=== PATIENT | female | born 1980 | race Caucasian/White ===

== ENCOUNTER 2021-04-28 11:25 | Emergency (ER) | payer MEDICAID ==
[2021-04-28] MEDS ORDERED: cefTRIAXone 1 GM, Lidocaine 1% 2.1 ML IM ONE ×2 (12:20)
[2021-04-28] MEDS ORDERED: HYDROmorphone 0.5 MG/0.5 ML Syringe IM ONE (12:20)
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
== END 2021-04-28 12:54 | disposition home or self-care (01) ==
LOC: JD.ED 11:25
DX: O99.612 Diseases of the digestive system complicating pregnancy, second trimester (principal); K02.9 Dental caries, unspecified; O99.212 Obesity complicating pregnancy, second trimester; E66.9 Obesity, unspecified; Z72.0 Tobacco use; Z3A.24 24 weeks gestation of pregnancy
CPT/HCPCS: 96372; 99282; J0696; J1170; 99283

== ENCOUNTER 2021-07-30 05:06 | Inpatient (IN) | payer MEDICAID ==
[~2021-07-30 05:06] MED LIST: Citric Acid/Sodium Citrate Solution 30 ML Cup PO ONE; Metoclopramide 10 MG/2 ML SDV IVPUSH ONE; Oxytocin/Lactated Ringers 10 UNIT/1,000 ML BAG IV SCH; Sodium Chloride 0.9% 10 ML Syringe FLUSH PRN; ceFAZolin 1 GM in Sodium Chloride 0.9% 100 ML IV ONE; ceFAZolin 2 GM in Premix Bag 1 BAG IV ONE
[2021-07-30] MEDS: Lactated Ringers 1,000 ML IV SCH ×2 (05:35→06:10)
[2021-07-30] MEDS ORDERED: Ketorolac 30 MG/ML SDV ONE (07:08)
[2021-07-30] MEDS ORDERED: Ondansetron 4 MG/2 ML SDV ONE ×2 (07:08→08:04)
[2021-07-30] MEDS ORDERED: Lactated Ringers 2,000 ML ONE (07:08)
[2021-07-30] MEDS ORDERED: ceFAZolin 1 GM Vial ONE (07:08)
[2021-07-30] MEDS ORDERED: Oxytocin 10 Units/1 ML SDV ONE (07:08)
[2021-07-30] MEDS ORDERED: Morphine PF 10 MG/10 ML SDV ONE (07:09)
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
[2021-07-30] MEDS ORDERED: ePHEDrine 50 MG/ML SDV ONE (07:55)
[2021-07-30] MEDS ORDERED: Bupivacaine 0.5% 30 ML SDV ONE (07:58)
[2021-07-30] MEDS ORDERED: fentaNYL 100 MCG/2 ML SDV IVPUSH PRN (08:11)
[2021-07-30] MEDS ORDERED: Ondansetron 4 MG/2 ML SDV IVPUSH PRN ×2 (08:11→13:19)
[2021-07-30] MEDS ORDERED: diphenhydrAMINE 50 MG/ML SDV IVPUSH PRN ×3 (08:11→09:12)
[2021-07-30] MEDS ORDERED: Meperidine 50 MG/ML Vial IVPUSH PRN (08:11)
[2021-07-30] MEDS ORDERED: Lactated Ringers 1,000 ML ONE (08:33)
--- NOTE | 2021-07-30 08:53 | PCM.POSTAN ---
POST ANESTHESIA ASSESSMENT - MENTAL STATUS Mental Status: Alert, Oriented - VITAL SIGNS Vital Signs: Last Vital Signs Temp 97.7 F 07/30/21 05:28 Pulse 89 07/30/21 05:28 Resp 16 07/30/21 05:28 BP 134/80 07/30/21 05:28 Pulse Ox 97 07/30/21 05:28 0840 102/61 94% 85 13 97.5 - RESPIRATORY Respiratory Status: Respiratory Rate WNL, Airway Patent, O2 Saturation Stable - CARDIOVASCULAR CV Status: Pulse Rate WNL, Blood Pressure Stable - GASTROINTESTINAL GI Status: No Symptoms - PAIN Pain Score: 0 - POST OP HYDRATION Hydration Status: Adequate & Stable
--- NOTE | 2021-07-30 09:03 | PCM.OPNOTE ---
- General Post-Op/Procedure Note Date of Surgery/Procedure: 07/30/21 Operative Procedure(s): repeat section Findings: omental adhesions, viable male, weight 6#12oz, 8/9 apgars at 0806. Normal uterus, tubes and ovaries. Pre Op Diagnosis: prior , desires repeat, AMA, poorly controlled/unmanaged gestational diabetes Post-Op Diagnosis: Same Anesthesia Technique: Spinal Primary Surgeon: Terri Fitzpatrick (33 min) Advanced Practice Psychiatric Nurse: Agnieszka Najera Fluid Replacement, Intraop: 3,500 Output, Urine Amount: 50 EBL in mLs: 800 Drain/Tube Comments:: romeo Complications: None Condition: Good Free Text/Narrative:: The patient was taken to the operating room where spinal anesthesia was initiated at surgical levels without difficulty. The patient was prepped and draped in the usual sterile fashion in the dorsal supine position with a leftward tilt. A Pfannenstiel skin incision was made with the scalpel and carried through to the underlying layer of fascia. The fascia was incised in the midline and extended laterally using Hernandez scissors. Tracie clamps were used to elevate the superior aspect of the fascial incision, which was elevated, and the underlying rectus muscles were dissected off bluntly and using Hernandez scissors. Attention was then turned to the inferior aspect of the fascial incision, which in similar fashion was grasped with Tracie clamps, elevated, and the underlying rectus muscles were dissected off bluntly and using the hernandez. The rectus muscles were dissected in the midline. The peritoneum was entered bluntly; this incision was extended superiorly and inferiorly with good visualization of the bladder. The bladder blade was inserted. The vesicouterine peritoneum was identified and entered sharply using Metzenbaum scissors. This incision was extended laterally and the bladder flap was created digitally. The bladder blade was reinserted. The lower uterine segment was incised in a transverse fashion using the scalpel and with digital traction. Clear fluid was noted. The infant was subsequently delivered by flexing the head to the incision. Body and shoulders followed without difficulty. The cord was clamped and cut. The infant was subsequently handed to the awaiting manager of sales whose presence had been requested.. The placenta was delivered spontaneously intact with a three-vessel cord noted. The uterus was exteriorized and cleared of all clots and debris. The uterine incision was repaired in 2 layers using 0 monocryl. Hemostasis was visualized. Hemostasis was visualized bilaterally. The uterus was returned to the abdomen. The uterine incision was reexamined and it was noted to be hemostatic. The pelvis was copiously irrigated. The fascia was closed with 1 PDS suture, and the skin was closed with 3-0 monocryl. Sponge, lap, and instrument counts were correct x2. The patient was stable at the completion of the procedure and was subsequently transferred to the recovery room in stable condition.
[2021-07-30] MEDS ORDERED: Acetaminophen/oxyCODONE 325-5 MG Tab PO PRN (09:12)
[2021-07-30] MEDS ORDERED: Naloxone 0.4 MG/ML SDV IVPUSH PRN ×2 (09:12)
[2021-07-30] MEDS ORDERED: ePHEDrine 50 MG/ML SDV IVPUSH PRN ×2 (09:12)
[2021-07-30] MEDS ORDERED: Dextrose 5%-Lactated Ringers 1,000 ML IV SCH ×2 (09:15)
[2021-07-30] MEDS: Ketorolac 30 MG/ML SDV IVPUSH SCH ×2 (13:26→20:36)
[2021-07-30] MEDS ORDERED: Promethazine 12.5 MG in Sodium Chloride 0.9% 50 ML IV PRN (18:25)
[2021-07-31] MEDS: Acetaminophen/oxyCODONE 325-5 MG Tab PO PRN ×5 (00:15→19:39)
[2021-07-31] MEDS: Ketorolac 30 MG/ML SDV IVPUSH SCH (02:04)
[2021-07-31] MEDS ORDERED: Simethicone 80 MG Tab.Chew PO PRN (02:12)
[2021-07-31] MEDS: Ibuprofen 600 MG Tab PO PRN ×3 (08:08→22:34)
[2021-07-31] MEDS: Prenatal Multivitamin with Calcium/Folic Acid/Iron Tab PO SCH (08:09)
--- NOTE | 2021-07-31 08:17 | PCM48HPAN ---
Post Anesthesia Note - EVALUATION WITHIN 48HRS OF ANESTHETIC Vital Signs in Normal Range: Yes Patient Participated in Evaluation: Yes Respiratory Function Stable: Yes Airway Patent: Yes Cardiovascular Function Stable: Yes Hydration Status Stable: Yes Pain Control Satisfactory: Yes Nausea and Vomiting Control Satisfactory: Yes (nausea yesterday until 1999- broth stayed down. fine today) Mental Status Recovered: Yes Vital Signs: Last Vital Signs Temp 97.5 F 07/31/21 05:05 Pulse 79 07/31/21 05:05 Resp 14 07/31/21 07:00 BP 112/64 07/31/21 05:05 Pulse Ox 99 07/31/21 07:00
[2021-07-31] MEDS ORDERED: LORAZEPAM 1 MG PO PRN (21:44)
[2021-08-01] MEDS: Acetaminophen/oxyCODONE 325-5 MG Tab PO PRN ×4 (00:09→23:42)
[2021-08-01] MEDS: Docusate Sodium 100 MG Cap PO PRN ×3 (02:30→23:42)
[2021-08-01] MEDS: Ibuprofen 600 MG Tab PO PRN ×2 (05:47→14:30)
[2021-08-01] MEDS ORDERED: HYDROmorphone 0.5 MG/0.5 ML Syringe IVPUSH PRN (07:37)
[2021-08-01] MEDS ORDERED: diphenhydrAMINE 50 MG/ML SDV IVPUSH PRN (07:38)
[2021-08-01] MEDS: HYDROmorphone 1 MG/ML Syringe IVPUSH PRN ×2 (08:25→14:40)
--- NOTE | 2021-08-01 08:37 | PCM.PNPP ---
- General Info Date of Service: 08/01/21 Functional Status: Reports: Pain Controlled - Review of Systems General: Reports: No Symptoms HEENT: Reports: No Symptoms Pulmonary: Reports: No Symptoms Cardiovascular: Reports: No Symptoms Gastrointestinal: Reports: No Symptoms Genitourinary: Reports: No Symptoms Musculoskeletal: Reports: No Symptoms Skin: Reports: No Symptoms Neurological: Reports: No Symptoms Psychiatric: Reports: No Symptoms - General Info Date of Service: 08/01/21 - Patient Data Vital Signs - Most Recent: Last Vital Signs Temp 37.2 C 08/01/21 02:27 Pulse 72 08/01/21 02:27 Resp 12 08/01/21 02:27 BP 103/61 08/01/21 02:27 Pulse Ox 97 08/01/21 02:27 Weight - Most Recent: 105.687 kg Med Orders - Current: Current Medications Diphenhydramine HCl (Diphenhydramine 50 Mg/Ml Sdv) 25 mg IVPUSH Q6H PRN PRN Reason: Itching or Nausea Diphenhydramine HCl (Diphenhydramine 50 Mg/Ml Sdv) 25 mg IVPUSH Q6H PRN PRN Reason: Anxiety Last Admin: 08/01/21 08:27 Dose: 25 mg Documented by: Docusate Sodium (Docusate Sodium 100 Mg Cap) 100 mg PO Q12H PRN PRN Reason: Constipation Last Admin: 08/01/21 02:30 Dose: 100 mg Documented by: Ephedrine Sulfate (Ephedrine 50 Mg/Ml Sdv) 5 mg IVPUSH SEECOMMENT PRN PRN Reason: Other Hydromorphone HCl (Hydromorphone 0.5 Mg/0.5 Ml Syringe) 0.5 mg IVPUSH Q2H PRN PRN Reason: Pain Hydromorphone HCl (Hydromorphone 1 Mg/Ml Syringe) 1 mg IVPUSH Q1H PRN PRN Reason: Pain (severe 7-10) Last Admin: 08/01/21 08:25 Dose: 1 mg Documented by: Promethazine HCl 12.5 mg/ (Sodium Chloride) 50.5 mls @ 100 mls/hr IV Q6H PRN PRN Reason: Nausea/Vomiting Ibuprofen (Ibuprofen 600 Mg Tab) 600 mg PO Q6H PRN PRN Reason: mild pain or fever Last Admin: 08/01/21 05:47 Dose: 600 mg Documented by: Lorazepam (Lorazepam 1 Mg Tab Own Med) 1 mg PO BEDTIME PRN PRN Reason: Anxiety Naloxone HCl (Naloxone 0.4 Mg/Ml Sdv) 0.1 mg IVPUSH SEECOMMENT PRN PRN Reason: Respiratory Depression Ondansetron HCl (Ondansetron 4 Mg/2 Ml Sdv) 4 mg IVPUSH Q8H PRN PRN Reason: Nausea/Vomiting Last Admin: 07/30/21 13:26 Dose: 4 mg Documented by: Oxycodone/Acetaminophen (Acetaminophen/Oxycodone 325-5 Mg Tab) 1 tab PO Q4H PRN PRN Reason: Pain (moderate 4-6) Oxycodone/Acetaminophen (Acetaminophen/Oxycodone 325-5 Mg Tab) 2 tab PO Q4H PRN PRN Reason: Pain (severe 7-10) Last Admin: 08/01/21 05:23 Dose: 2 tab Documented by: Prenat Multivit/[place]/Iron/Folic Ac ( Multivitamin With Calcium/Folic Acid/Iron Tab) 1 each PO DAILY ANNEL Last Admin: 07/31/21 08:09 Dose: 1 each Documented by: Simethicone (Simethicone 80 Mg Tab.Chew) 80 mg PO Q6H PRN PRN Reason: Gas Last Admin: 07/31/21 02:26 Dose: 80 mg Documented by: Discontinued Medications Bupivacaine HCl (Bupivacaine 0.5% 30 Ml Sdv) Confirm Administered Dose 30 ml .ROUTE .STK-MED ONE Stop: 07/30/21 07:59 Last Admin: 07/30/21 08:02 Dose: 20 ml Documented by: Cefazolin Sodium (Cefazolin 1 Gm Vial) Confirm Administered Dose 2 gm .ROUTE .STK-MED ONE Stop: 07/30/21 07:09 Citric Acid/Sodium Citrate (Citric Acid/Sodium Citrate Solution 30 Ml Cup) 30 ml PO ONETIME ONE Stop: 07/30/21 01:25 Last Admin: 07/30/21 07:07 Dose: 30 ml Documented by: Diphenhydramine HCl (Diphenhydramine 50 Mg/Ml Sdv) 25 mg IVPUSH Q6H PRN PRN Reason: Pruritis Last Admin: 07/30/21 09:20 Dose: 25 mg Documented by: Diphenhydramine HCl (Diphenhydramine 50 Mg/Ml Sdv) 25 mg IVPUSH Q6H PRN PRN Reason: Itching or Nausea Ephedrine Sulfate (Ephedrine 50 Mg/Ml Sdv) Confirm Administered Dose 50 mg .ROUTE .STK-MED ONE Stop: 07/30/21 07:56 Fentanyl (Fentanyl 100 Mcg/2 Ml Sdv) 50 mcg IVPUSH Q5M PRN PRN Reason: Pain Cefazolin Sodium 1 gm/ Sodium (Chloride) 100 mls @ 100 mls/hr IV ONETIME ONE Stop: 07/30/21 02:23 Cefazolin Sodium/Dextrose 2 gm (/ Premix) 50 mls @ 100 mls/hr IV ONETIME ONE Stop: 07/30/21 01:53 Oxytocin/Lactated Ringer's (Pitocin In Lr 10 Units/1,000 Ml) 10 unit in 1,000 mls @ 100 mls/hr IV ASDIRECTED [facility] Lactated Ringer's (Ringers, Lactated) 1,000 mls @ 125 mls/hr IV ASDIRECTED [facility] Last Admin: 07/30/21 06:10 Dose: 100 mls/hr Documented by: Lactated Ringer's (Ringers, Lactated) Confirm Administered Dose 2,000 mls @ as directed .ROUTE .ST-MED ONE Stop: 07/30/21 07:09 Lactated Ringer's (Ringers, Lactated) Confirm Administered Dose 1,000 mls @ as directed .ROUTE .STK-MED ONE Stop: 07/30/21 08:34 Dextrose/Lactated Ringer's (Dextrose 5%-Lactated Ringers) 1,000 mls @ 125 mls/hr IV ASDIRECTED [facility] Stop: 07/30/21 17:14 Dextrose/Lactated Ringer's (Dextrose 5%-Lactated Ringers) 1,000 mls @ 125 mls/hr IV ASDIRECTED [facility] Stop: 07/30/21 17:14 Last Admin: 07/30/21 10:04 Dose: 125 mls/hr Documented by: Ketorolac Tromethamine (Ketorolac 30 Mg/Ml Sdv) Confirm Administered Dose 30 mg .ROUTE .STK-MED ONE Stop: 07/30/21 07:09 Ketorolac Tromethamine (Ketorolac 30 Mg/Ml Sdv) 30 mg IVPUSH Q6H ANNEL Stop: 07/31/21 01:31 Last Admin: 07/31/21 02:04 Dose: 30 mg Documented by: Meperidine HCl (Meperidine 50 Mg/Ml Vial) 25 mg IVPUSH ONETIME PRN PRN Reason: Shivering Metoclopramide HCl (Metoclopramide 10 Mg/2 Ml Sdv) 10 mg IVPUSH ONETIME ONE Stop: 07/30/21 01:25 Last Admin: 07/30/21 07:08 Dose: 10 mg Documented by: Miscellaneous Medication (Phenylephrine Hcl In 0.9% Nacl 1 Mg/10 Ml Syringe) Confirm Administered Dose 1 mg .ROUTE .STK-MED ONE Stop: 07/30/21 07:53 Morphine Sulfate (Morphine Pf 10 Mg/10 Ml Sdv) Confirm Administered Dose 10 mg .ROUTE .STK-MED ONE Stop: 07/30/21 07:10 Ondansetron HCl (Ondansetron 4 Mg/2 Ml Sdv) Confirm Administered Dose 4 mg .ROUTE .STK-MED ONE Stop: 07/30/21 07:09 Ondansetron HCl (Ondansetron 4 Mg/2 Ml Sdv) Confirm Administered Dose 4 mg .ROUTE .STK-MED ONE Stop: 07/30/21 08:05 Ondansetron HCl (Ondansetron 4 Mg/2 Ml Sdv) 4 mg IVPUSH ONETIME PRN PRN Reason: Nausea/Vomiting Oxytocin (Oxytocin 10 Units/1 Ml Sdv) Confirm Administered Dose 10 unit .ROUTE .STK-MED ONE Stop: 07/30/21 07:09 Sodium Chloride (Sodium Chloride 0.9% 10 Ml Syringe) 10 ml FLUSH ASDIRECTED PRN PRN Reason: Keep Vein Open - Interaction Support Person: Significant Other - Recovery Exam Fundal Tone: Firm Fundal Level: 1 Fingerbreadths Below Umbilicus Fundal Placement: Midline Lochia Amount: Scant, Small Lochia Color: Rubra/Red Perineum Description: Intact, Minimal Bruising/Swelling Episiotomy/Laceration: None Bladder Status: Voiding Urinary Elimination: Voided - Exam General: Alert, Oriented HEENT: Pupils Equal Neck: Supple Lungs: Clear to Auscultation, Normal Respiratory Effort Cardiovascular: Regular Rate, Regular Rhythm GI/Abdominal Exam: Normal Bowel Sounds, Soft, Non-Tender, No Organomegaly, No Distention, No Abnormal Bruit, No Mass, Pelvis Stable Extremities: Normal Inspection, Normal Range of Motion, Non-Tender, No Pedal Edema, Normal Capillary Refill Skin: Warm, Dry, Intact Wound/Incisions: Other (open - packed daily) Neurological: No New Focal Deficit Psy/Mental Status: Alert, Normal Affect, Normal Mood - Problem List Review Problem List Initiated/Reviewed/Updated: Yes - My Orders Last 24 Hours: My Active Orders 07/31/21 09:00 Vit with Ca/FA/Iron [ Plus Iron] 1 each PO DAILY 07/31/21 12:58 PT Evaluation and Treatment [CONS] Routine 07/31/21 21:44 LORazepam [Ativan] 1 mg PO BEDTIME PRN 08/01/21 02:22 Docusate Sodium [Colace] 100 mg PO Q12H PRN 08/01/21 07:37 HYDROmorphone [Dilaudid] 0.5 mg IVPUSH Q2H PRN 08/01/21 07:38 HYDROmorphone [Dilaudid] 1 mg IVPUSH Q1H PRN diphenhydrAMINE [Benadryl] 25 mg IVPUSH Q6H PRN - Assessment Assessment:: POD2. Doing well. Tolerating wound packing. Wound vacuum tomorrow if possible
[2021-08-01] MEDS: Prenatal Multivitamin with Calcium/Folic Acid/Iron Tab PO SCH (10:50)
[2021-08-02] MEDS: Ibuprofen 600 MG Tab PO PRN ×3 (00:55→14:15)
[2021-08-02] MEDS: Acetaminophen/oxyCODONE 325-5 MG Tab PO PRN ×4 (04:06→16:42)
[2021-08-02] MEDS: Docusate Sodium 100 MG Cap PO PRN (08:37)
[2021-08-02] MEDS: Prenatal Multivitamin with Calcium/Folic Acid/Iron Tab PO SCH (08:37)
--- NOTE | 2021-08-02 08:56 | PCM.DCSUM1 ---
Discharge Summary - Hospital Course Diagnosis: Stroke: No - Discharge Data Discharge Date: 08/02/21 Discharge Disposition: Home, Self-Care 01 Condition: Good - Referral to Home Health Primary Care Physician: Terri Fitzpatrick MD - Patient Summary/Data Operative Procedure(s) Performed: repeat section Consults: Consultations 07/31/21 12:58 PT Evaluation and Treatment [CONS] Routine Hospital Course: Admitted for repeat . Wound separation POD1. Packed daily with moist kerlix. Wound vacuum consult. Discharged in good condition. - Patient Instructions Diet: Usual Diet as Tolerated Activity: No Strenuous Activities Driving: Do Not Drive (while requiring pain meds) Showering/Bathing: No Showering Wound/Incision Care: Do NOT Change Dressing (PT for this) Notify Provider of: Fever, Increased Pain, Swelling and Redness, Drainage, Nausea and/or Vomiting - Discharge Plan *PRESCRIPTION DRUG MONITORING PROGRAM REVIEWED*: No *COPY OF PRESCRIPTION DRUG MONITORING REPORT IN PATIENT NINI: No Home Medications: Home Meds Non-Formulary Medication [NF Drug] 1 inh INH DAILY 04/28/21 [History] Pnv No.95/Ferrous Fum/Folic AC [ Cap[place]] 1 each PO DAILY 04/28/21 [History] LORazepam [Ativan] 1 mg PO DAILY 07/29/21 [History] Patient Handouts: Marijuana Use During and , Steps to Quit Smoking Referrals: Terri Fitzpatrick MD [Primary Care Provider] - (2 weeks) Physical Therapy,Template [Physical Therapist] - (1 weeks) - Discharge Summary/Plan Comment DC Time >30 min.: Yes Total # of Minutes for Discharge Time: 45 - General Info Date of Service: 08/02/21 Functional Status: Reports: Pain Controlled - Review of Systems General: Reports: No Symptoms HEENT: Reports: No Symptoms Pulmonary: Reports: No Symptoms Cardiovascular: Reports: No Symptoms Gastrointestinal: Reports: No Symptoms Genitourinary: Reports: No Symptoms Musculoskeletal: Reports: No Symptoms Skin: Reports: No Symptoms Neurological: Reports: No Symptoms Psychiatric: Reports: No Symptoms - Patient Data Vitals - Most Recent: Last Vital Signs Temp 36.6 C 08/02/21 08:19 Pulse 88 08/02/21 08:19 Resp 15 08/02/21 08:19 BP 114/67 08/02/21 08:19 Pulse Ox 97 10/29/21 08:19 Weight - Most Recent: 105.687 kg I&O - Last 24 hours: Intake & Output 08/01/21 08/02/21 08/02/21 22:59 06:59 14:59 Intake Total 320 Balance 320 Med Orders - Current: Current Medications Diphenhydramine HCl (Diphenhydramine 50 Mg/Ml Sdv) 25 mg IVPUSH Q6H PRN PRN Reason: Itching or Nausea Diphenhydramine HCl (Diphenhydramine 50 Mg/Ml Sdv) 25 mg IVPUSH Q6H PRN PRN Reason: Anxiety Last Admin: 08/01/21 08:27 Dose: 25 mg Documented by: Docusate Sodium (Docusate Sodium 100 Mg Cap) 100 mg PO Q12H PRN PRN Reason: Constipation Last Admin: 08/02/21 08:37 Dose: 100 mg Documented by: Ephedrine Sulfate (Ephedrine 50 Mg/Ml Sdv) 5 mg IVPUSH SEECOMMENT PRN PRN Reason: Other Hydromorphone HCl (Hydromorphone 0.5 Mg/0.5 Ml Syringe) 0.5 mg IVPUSH Q2H PRN PRN Reason: Pain Last Admin: 08/01/21 11:23 Dose: 0.5 mg Documented by: Hydromorphone HCl (Hydromorphone 1 Mg/Ml Syringe) 1 mg IVPUSH Q1H PRN PRN Reason: Pain (severe 7-10) Last Admin: 08/01/21 14:40 Dose: 1 mg Documented by: Promethazine HCl 12.5 mg/ (Sodium Chloride) 50.5 mls @ 100 mls/hr IV Q6H PRN PRN Reason: Nausea/Vomiting Ibuprofen (Ibuprofen 600 Mg Tab) 600 mg PO Q6H PRN PRN Reason: mild pain or fever Last Admin: 08/02/21 07:11 Dose: 600 mg Documented by: Lorazepam (Lorazepam 1 Mg Tab Own Med) 1 mg PO BEDTIME PRN PRN Reason: Anxiety Naloxone HCl (Naloxone 0.4 Mg/Ml Sdv) 0.1 mg IVPUSH SEECOMMENT PRN PRN Reason: Respiratory Depression Ondansetron HCl (Ondansetron 4 Mg/2 Ml Sdv) 4 mg IVPUSH Q8H PRN PRN Reason: Nausea/Vomiting Last Admin: 07/30/21 13:26 Dose: 4 mg Documented by: Oxycodone/Acetaminophen (Acetaminophen/Oxycodone 325-5 Mg Tab) 1 tab PO Q4H PRN PRN Reason: Pain (moderate 4-6) Last Admin: 08/01/21 10:50 Dose: 1 tab Documented by: Oxycodone/Acetaminophen (Acetaminophen/Oxycodone 325-5 Mg Tab) 2 tab PO Q4H PRN PRN Reason: Pain (severe 7-10) Last Admin: 08/02/21 08:23 Dose: 2 tab Documented by: Prenat Multivit/[place]/Iron/Folic Ac ( Multivitamin With Calcium/Folic Acid/Iron Tab) 1 each PO DAILY ANNEL Last Admin: 08/02/21 08:37 Dose: 1 each Documented by: Simethicone (Simethicone 80 Mg Tab.Chew) 80 mg PO Q6H PRN PRN Reason: Gas Last Admin: 07/31/21 02:26 Dose: 80 mg Documented by: Discontinued Medications Bupivacaine HCl (Bupivacaine 0.5% 30 Ml Sdv) Confirm Administered Dose 30 ml .ROUTE .STK-MED ONE Stop: 07/30/21 07:59 Last Admin: 07/30/21 08:02 Dose: 20 ml Documented by: Cefazolin Sodium (Cefazolin 1 Gm Vial) Confirm Administered Dose 2 gm .ROUTE .STK-MED ONE Stop: 07/30/21 07:09 Citric Acid/Sodium Citrate (Citric Acid/Sodium Citrate Solution 30 Ml Cup) 30 ml PO ONETIME ONE Stop: 07/30/21 01:25 Last Admin: 07/30/21 07:07 Dose: 30 ml Documented by: Diphenhydramine HCl (Diphenhydramine 50 Mg/Ml Sdv) 25 mg IVPUSH Q6H PRN PRN Reason: Pruritis Last Admin: 07/30/21 09:20 Dose: 25 mg Documented by: Diphenhydramine HCl (Diphenhydramine 50 Mg/Ml Sdv) 25 mg IVPUSH Q6H PRN PRN Reason: Itching or Nausea Ephedrine Sulfate (Ephedrine 50 Mg/Ml Sdv) Confirm Administered Dose 50 mg .ROUTE .STK-MED ONE Stop: 07/30/21 07:56 Fentanyl (Fentanyl 100 Mcg/2 Ml Sdv) 50 mcg IVPUSH Q5M PRN PRN Reason: Pain Cefazolin Sodium 1 gm/ Sodium (Chloride) 100 mls @ 100 mls/hr IV ONETIME ONE Stop: 07/30/21 02:23 Cefazolin Sodium/Dextrose 2 gm (/ Premix) 50 mls @ 100 mls/hr IV ONETIME ONE Stop: 07/30/21 01:53 Oxytocin/Lactated Ringer's (Pitocin In Lr 10 Units/1,000 Ml) 10 unit in 1,000 mls @ 100 mls/hr IV ASDIRECTED [facility] Lactated Ringer's (Ringers, Lactated) 1,000 mls @ 125 mls/hr IV ASDIRECTED [facility] Last Admin: 07/30/21 06:10 Dose: 100 mls/hr Documented by: Lactated Ringer's (Ringers, Lactated) Confirm Administered Dose 2,000 mls @ as directed .ROUTE .K-MED ONE Stop: 07/30/21 07:09 Lactated Ringer's (Ringers, Lactated) Confirm Administered Dose 1,000 mls @ as directed .ROUTE .STK-MED ONE Stop: 07/30/21 08:34 Dextrose/Lactated Ringer's (Dextrose 5%-Lactated Ringers) 1,000 mls @ 125 mls/hr IV ASDIRECTED [facility] Stop: 07/30/21 17:14 Dextrose/Lactated Ringer's (Dextrose 5%-Lactated Ringers) 1,000 mls @ 125 mls/hr IV ASDIRECTED [facility] Stop: 07/30/21 17:14 Last Admin: 07/30/21 10:04 Dose: 125 mls/hr Documented by: Ketorolac Tromethamine (Ketorolac 30 Mg/Ml Sdv) Confirm Administered Dose 30 mg .ROUTE .STK-MED ONE Stop: 07/30/21 07:09 Ketorolac Tromethamine (Ketorolac 30 Mg/Ml Sdv) 30 mg IVPUSH Q6H [facility] Stop: 07/31/21 01:31 Last Admin: 07/31/21 02:04 Dose: 30 mg Documented by: Meperidine HCl (Meperidine 50 Mg/Ml Vial) 25 mg IVPUSH ONETIME PRN PRN Reason: Shivering Metoclopramide HCl (Metoclopramide 10 Mg/2 Ml Sdv) 10 mg IVPUSH ONETIME ONE Stop: 07/30/21 01:25 Last Admin: 07/30/21 07:08 Dose: 10 mg Documented by: Miscellaneous Medication (Phenylephrine Hcl In 0.9% Nacl 1 Mg/10 Ml Syringe) Confirm Administered Dose 1 mg .ROUTE .STK-MED ONE Stop: 07/30/21 07:53 Morphine Sulfate (Morphine Pf 10 Mg/10 Ml Sdv) Confirm Administered Dose 10 mg .ROUTE .STK-MED ONE Stop: 07/30/21 07:10 Ondansetron HCl (Ondansetron 4 Mg/2 Ml Sdv) Confirm Administered Dose 4 mg .ROUTE .STK-MED ONE Stop: 07/30/21 07:09 Ondansetron HCl (Ondansetron 4 Mg/2 Ml Sdv) Confirm Administered Dose 4 mg .ROUTE .STK-MED ONE Stop: 07/30/21 08:05 Ondansetron HCl (Ondansetron 4 Mg/2 Ml Sdv) 4 mg IVPUSH ONETIME PRN PRN Reason: Nausea/Vomiting Oxytocin (Oxytocin 10 Units/1 Ml Sdv) Confirm Administered Dose 10 unit .ROUTE .STK-MED ONE Stop: 07/30/21 07:09 Sodium Chloride (Sodium Chloride 0.9% 10 Ml Syringe) 10 ml FLUSH ASDIRECTED PRN PRN Reason: Keep Vein Open - Exam General: Reports: Alert, Oriented HEENT: Reports: Pupils Equal, Pupils Reactive, EOMI, Mucous Membr. Moist/[place] Neck: Reports: Supple Lungs: Reports: Clear to Auscultation, Normal Respiratory Effort Cardiovascular: Reports: Regular Rate, Regular Rhythm GI/Abdominal Exam: Normal Bowel Sounds, Soft, Non-Tender, No Organomegaly, No Distention, Other (Wound open - 6 cm deep approximately and open entire length.) Rectal (Female) Exam: Normal Exam, Normal Rectal Tone Back Exam: Reports: Normal Inspection, Full Range of Motion Extremities: Normal Inspection, Normal Range of Motion, Non-Tender, No Pedal Edema, Normal Capillary Refill Skin: Reports: Warm, Dry, Intact Wound/Incisions: Reports: Healing Well Neurological: Reports: No New Focal Deficit Psy/Mental Status: Reports: Alert, Normal Affect, Normal Mood
== END 2021-08-02 19:05 | disposition home or self-care (01) | DRG 788 ==
LOC: JD.OB 05:06
PROVIDERS: ADMIT Obstetrics & Gynecology; ATTEND Obstetrics & Gynecology
PROC: 10D00Z1 Extraction of Products of Conception, Low, Open Approach (ICD-10-PCS; principal; 2021-07-30)
DX: O34.211 Maternal care for low transverse scar from previous cesarean delivery (principal); Z37.0 Single live birth; O99.62 Diseases of the digestive system complicating childbirth; K21.9 Gastro-esophageal reflux disease without esophagitis; O99.344 Other mental disorders complicating childbirth; F41.9 Anxiety disorder, unspecified; F31.9 Bipolar disorder, unspecified; Z20.822 Contact with and (suspected) exposure to COVID-19; Z87.891 Personal history of nicotine dependence; O24.429 Gestational diabetes mellitus in childbirth, unspecified control; Z3A.38 38 weeks gestation of pregnancy
CPT/HCPCS: 01961; 36415; 59025; 80306; 81001; 82947; 85025; 86592; 86850; 86900; 86901; 97161-GP; 97607; A9270-GY; J0690; J1170; J1200; J1885; J2270; J2370; J2405; J2590; J2765; J3490; J7120; J7121; U0002

== ENCOUNTER 2021-10-03 08:45 | Emergency (ER) | payer MEDICAID ==
[2021-10-03] MEDS ORDERED: HYDROmorphone 1 MG/ML Syringe IVPUSH ONE (10:54)
[2021-10-03] MEDS ORDERED: Metoclopramide 10 MG/2 ML SDV IVPUSH ONE (10:55)
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
[2021-10-03] MEDS ORDERED: Dextrose 5%-0.9% NaCl 1,000 ML IV SCH (11:00)
--- NOTE | 2021-10-03 11:32 | CT ---
CT abdomen and pelvis Technique: Multiple axial sections were obtained from slightly below the top of the liver inferiorly through the pubic symphysis. Intravenous and oral contrast were not utilized. Reconstructed coronal and sagittal images were obtained. Comparison: No prior abdominal imaging is available. Findings: Soft tissue density is seen around the lower anterior abdominal wall. This presumably represents previous surgery. No additional abdominal wall abnormality is appreciated. Visualized lung bases are clear. Noncontrast appearance of spleen size is normal. Adrenal glands show no nodule. Pancreas shows no discrete abnormality. Kidneys show no abnormal calcifications or hydronephrosis. Abdominal aorta shows no aneurysm. No retroperitoneal adenopathy or mesenteric abnormalities are seen. No pelvic mass or adenopathy is seen. Appendix not visualized. Scattered diverticuli are seen within the descending and sigmoid regions. Bone window settings were reviewed which show no acute osseous abnormality. Impression: 1. Soft tissue thickening within the lower anterior abdominal wall presumably due to prior surgery. Please correlate. 2. Diverticuli within the descending and sigmoid regions. 3. No acute finding is definitely seen on noncontrast CT study of the abdomen and pelvis. Diagnostic code #3
== END 2021-10-03 13:26 | disposition home or self-care (01) ==
LOC: JD.ED 08:45
DX: R10.32 Left lower quadrant pain (principal); E66.9 Obesity, unspecified; Z68.32 Body mass index [BMI] 32.0-32.9, adult
CPT/HCPCS: 36415; 74176; 80053; 81001; 81025; 85025; 96374; 96375; 99284; J1170; J2765; J7042

== ENCOUNTER 2022-04-18 20:52 | Emergency (ER) | payer MEDICAID | END 2022-04-18 23:38 | disposition home or self-care (01) | LOC: JD.ED 20:52 | DX: N75.0 Cyst of Bartholin's gland (principal); E66.9 Obesity, unspecified; Z68.36 Body mass index [BMI] 36.0-36.9, adult; Z79.899 Other long term (current) drug therapy; Z87.891 Personal history of nicotine dependence | CPT/HCPCS: 99282; 99283 ==

== ENCOUNTER 2022-07-15 10:45 | Inpatient (IN) | payer MEDICAID ==
[~2022-07-15 10:45] MED LIST changes: +Albuterol 0.083% 2.5 MG/3 ML Neb Soln INH ONE; -Citric Acid/Sodium Citrate Solution 30 ML Cup PO ONE; -Metoclopramide 10 MG/2 ML SDV IVPUSH ONE; -Oxytocin/Lactated Ringers 10 UNIT/1,000 ML BAG IV SCH; +Scopolamine 1.5 MG Transdermal Patch TOP ONE; -Sodium Chloride 0.9% 10 ML Syringe FLUSH PRN; -ceFAZolin 1 GM in Sodium Chloride 0.9% 100 ML IV ONE; -ceFAZolin 2 GM in Premix Bag 1 BAG IV ONE
[2022-07-15] MEDS ORDERED: Sodium Chloride 0.9% 100 ML IV ONE (12:20)
[2022-07-15] MEDS ORDERED: Dexmedetomidine 200 MCG/2 ML SDV IV ONE (12:20)
[2022-07-15] MEDS ORDERED: fentaNYL 250 MCG/5 ML SDV IV ONE (12:20)
[2022-07-15] MEDS ORDERED: Lidocaine 1% PF 2 ML SDV IV ONE (12:20)
[2022-07-15] MEDS ORDERED: Rocuronium 50 MG/5 ML Vial IV ONE (12:20)
[2022-07-15] MEDS ORDERED: HYDROmorphone 0.5 MG/0.5 ML Syringe IV ONE ×4 (12:20→13:06)
[2022-07-15] MEDS ORDERED: Sugammadex Sodium 200 MG/2 ML VIAL IV ONE (12:20)
[2022-07-15] MEDS ORDERED: Ondansetron 4 MG/2 ML SDV IV ONE (12:20)
[2022-07-15] MEDS ORDERED: Dexamethasone 4 MG/ML 5 ML MDV IV ONE (12:20)
[2022-07-15] MEDS ORDERED: Ketorolac 30 MG/ML SDV IVPUSH ONE ×3 (12:20→20:00)
[2022-07-15] MEDS ORDERED: Midazolam 1 MG/ML 2 ML SDV IV ONE (12:20)
[2022-07-15] MEDS ORDERED: ceFAZolin 2 GM Vial IV ONE (12:20)
[2022-07-15] MEDS ORDERED: Propofol 200 MG/20 ML SDV IV ONE (12:20)
[2022-07-15] MEDS ORDERED: Lactated Ringers 1,000 ML IV ONE ×3 (12:20→13:21)
[2022-07-15] MEDS ORDERED: Phenylephrine HCl In 0.9% NaCl 1 MG/10 ML Vial IV ONE (12:20)
[2022-07-15] MEDS ORDERED: fentaNYL 100 MCG/2 ML SDV IV ONE ×3 (12:46→13:08)
[2022-07-15] MEDS ORDERED: Acetaminophen/oxyCODONE 325-5 MG Tab PO ONE ×2 (15:35)
[2022-07-16] MEDS ORDERED: Acetaminophen/oxyCODONE 325-5 MG Tab PO ONE ×2 (05:10→14:19)
[2022-07-16] MEDS ORDERED: LORazepam 1 MG Tab PO ONE (05:10)
[2022-07-16] MEDS ORDERED: Ibuprofen 600 MG Tab PO ONE (14:30)
== END 2022-07-17 10:30 | disposition home or self-care (01) | DRG 743 ==
LOC: JD.ZCENSUS 14:00
PROVIDERS: ADMIT Obstetrics & Gynecology; ATTEND Obstetrics & Gynecology
PROC: 0UT90ZZ Resection of Uterus, Open Approach (ICD-10-PCS; principal; 2022-07-15)
PROC: 0UT70ZZ Resection of Bilateral Fallopian Tubes, Open Approach (ICD-10-PCS; 2022-07-15)
PROC: 0UBM0ZZ Excision of Vulva, Open Approach (ICD-10-PCS; 2022-07-15)
DX: D25.9 Leiomyoma of uterus, unspecified (principal); N89.8 Other specified noninflammatory disorders of vagina; F31.9 Bipolar disorder, unspecified; G47.30 Sleep apnea, unspecified; G43.909 Migraine, unspecified, not intractable, without status migrainosus
CPT/HCPCS: 00840; 36415; 81003; 81025; 85025; 86850; 86900; 86901; 88305; A9270-GY; J0690; J1100; J1170; J1885; J2250; J2405; J2704; J3010; J3490; J7120

== ENCOUNTER 2024-04-29 08:13 | Emergency (ER) | payer SELFPAY ==
[2024-04-29] MEDS: Sodium Chloride 0.9% 1,000 ML IV ONE (08:44)
[2024-04-29] MEDS: Ketorolac 30 MG/ML SDV IVPUSH ONE (08:45)
[2024-04-29] MEDS: Sodium Chloride 0.9% 10 ML Syringe FLUSH PRN (08:47)
[2024-04-29 09:01] LABS: BASOPHILS PERCENT AUTO 0.4 % (0.0-1.0); EOSINOPHILS ABSOLUTE AUTO 0.3 K/mm3 (0.0-0.4); EOSINOPHILS PERCENT AUTO 2.5 % (0.0-6.0); HEMATOCRIT 48.1 % (37.0-47.0); HEMOGLOBIN 15.9 gm/dl (12.0-16.0); IMMATURE GRAN ABSOLUTE AUTO 0.04 K/mm3 (0.00-0.05); IMMATURE GRAN PERCENT AUTO 0.4 % (0.0-0.4); LYMPHOCYTES ABSOLUTE AUTO 2.5 K/mm3 (1.0-4.8); LYMPHOCYTES PERCENT AUTO 22.2 % (24.0-44.0); MEAN CORPUSCULAR HEMOGLOBIN 28.4 pg (28.0-32.0); MEAN CORPUSCULAR HGB CONC 33.1 g/dl (32.0-36.0); MEAN PLATELET VOLUME 9.3 fl (9.4-12.3); MONOCYTES ABSOLUTE AUTO 0.6 K/mm3 (0.0-0.8); MONOCYTES PERCENT AUTO 5.5 % (0.0-8.0); NEUTROPHILS ABSOLUTE AUTO 7.7 K/mm3 (1.8-7.7); PLATELET COUNT,PLT 262 K/mm3 (150-400); RED BLOOD CELL COUNT 5.59 M/mm3 (4.10-5.30); WHITE BLOOD CELL COUNT,WBC 11.13 K/mm3 (3.9-11.3)
[2024-04-29] MEDS: Iopamidol 612 MG/ML 100 ML Bottle IVPUSH ONE (09:07)
[2024-04-29 09:15] LABS: APPEARANCE,URINE CLEAR (Clear); BILIRUBIN,URINE NEGATIVE (Negative); COLOR,URINE YELLOW (Yellow); GLUCOSE,URINE NEGATIVE (Negative); KETONES,URINE NEGATIVE (Negative); LEUKOCYTE ESTERASE,URINE NEGATIVE (Negative); NITRITE,URINE NEGATIVE (Negative); OCCULT BLOOD,URINE NEGATIVE (Negative); PROTEIN,URINE NEGATIVE (Negative); UROBILINOGEN,URINE 0.2 (0.2-1.0)
[2024-04-29 09:17] LABS: A/G RATIO 0.9 (1-2); ALBUMIN 3.6 g/dl (3.4-5.0); ANION GAP 14.8 (5-15); BILIRUBIN TOTAL 0.4 mg/dL (0.2-1.0); C-REACTIVE PROTEIN 4.14 mg/dL (<0.30); CALCIUM 9.1 mg/dL (8.5-10.1); CREATININE 0.7 mg/dL (0.55-1.02); EST CRCL DRUG DOSING (CG) 104.22 mL/min; POTASSIUM,K 3.8 mEq/L (3.5-5.1); PROTEIN TOTAL,TP 7.6 g/dl (6.4-8.2)
[2024-04-29] MEDS: metroNIDAZOLE/Normal Saline 500 MG in Premix Bag 1 BAG IV ONE (09:30)
[2024-04-29] MEDS: Levofloxacin/Dextrose 5%-Water 500 MG in Premix Bag 1 BAG IV ONE (10:33)
== END 2024-04-29 12:10 | disposition home or self-care (01) ==
LOC: JD.ED 08:13
DX: K57.32 Diverticulitis of large intestine without perforation or abscess without bleeding (principal); K76.0 Fatty (change of) liver, not elsewhere classified; F17.210 Nicotine dependence, cigarettes, uncomplicated; Z90.710 Acquired absence of both cervix and uterus
CPT/HCPCS: 36415; 74177; 74177-26; 80053; 81003; 83605; 83690; 85025; 86140; 96361; 96365; 96366; 96367; 96375; 99284-25; J1836; J1885; J1956; J3490; J7030; Q9967